=== PATIENT | female | born 1955 | race Caucasian/White ===

== ENCOUNTER → 2016-10-01 | Outpatient (CLI) | payer BC ==
--- NOTE | 2016-10-01 17:27 | CT ---
EXAMINATION TYPE: CT angio chest DATE OF EXAM: 10/01/2016 5:08 PM COMPARISON: NONE HISTORY: Pt states of SOB x9 months. CT DLP: 583 mGycm Automated exposure control for dose reduction was used. CONTRAST: CTA scan of the thorax is performed with IV Contrast, patient injected with 80 mL of Omnipaque 350, p ulmonary embolism protocol. MIP images are created and reviewed. 3D reconstructed images are create d on an independent workstation and reviewed. FINDINGS: The lungs are clear of consolidation. There is mild atelectasis at the lung bases. There is a large h iatal hernia. I see no filling defects in the pulmonary arteries. There is no evidence of a pulmonary mass. There are no hilar masses. There is no evidence of aortic aneurysm or dissection. Heart size i s fairly normal. There is no mediastinal adenopathy. IMPRESSION: NO EVIDENCE OF PULMONARY EMBOLISM. LARGE HIATAL HERNIA. MILD ATELECTASIS AT THE LUNG BASES. THERE IS MINIMAL FIBROTIC CHANGE AT THE LUNG BASES WELL.
== END | disposition home or self-care (01) ==
LOC: RADCTMAIN 16:23
PROVIDERS: ATTEND Internal Medicine Critical Care Medicine
DX: J84.10 Pulmonary fibrosis, unspecified (principal)
CPT/HCPCS: 71275; Q9967

== ENCOUNTER 2016-11-06 09:25 | Day surgery (SDC) | payer BC ==
[2016-11-05 09:07] VITALS: BMI 38.2
[~2016-11-06 09:25] MED LIST: LACTATED RINGERS 1,000 ML IV SCH
[2016-11-06 09:46] VITALS: RESP 18; TEMP 97.8
[2016-11-06] MEDS ORDERED: LIDOCAINE 1% 20 ML VIAL (10MG/ML) FOR IV START INTRADERMA ONE (10:01)
[2016-11-06 10:20] LABS: Anisocytosis Moderate; Basophils % (A) 0 %; CH 25.5; CHCM 29.1; Eosinophils # (A) 0.1 k/uL (0-0.7); Eosinophils % (A) 3 %; HCT 31.9 % (34.0-46.0); HDW 3.04; HGB 9.5 gm/dL (11.4-16.0); Hypochromasia Marked; Luc # (Auto) 0.11; Luc % (Auto) 4; Lymphocytes # (A) 0.8 k/uL (1.0-4.8); Lymphocytes % (A) 28 %; MCH 25.9 pg (25.0-35.0); MCHC 29.7 g/dL (31.0-37.0); MCV 87.5 fL (80.0-100.0); Mean Platelet Volume 6.7; Microcytosis Slight; Monocytes # (A) 0.2 k/uL (0-1.0); Monocytes % (A) 7 %; Neutrophils # (A) 1.6 k/uL (1.3-7.7); Neutrophils % (A) 58 %; RBC 3.65 m/uL (3.80-5.40); RDW 22.6 % (11.5-15.5); WBC 2.7 k/uL (3.8-10.6); WBC (Perox) 2.79
[2016-11-06] MEDS ORDERED: LIDOCAINE 1% INJ 10MG/ML (20 ML MDV) ONE (10:41)
[2016-11-06] MEDS ORDERED: PROPOFOL 10 MG/ML 20 ML VIAL IV ONE (10:41)
--- NOTE | 2016-11-06 11:27 | P.PCN ---
Date of Procedure: 11/06/16 Procedure(s) Performed: Procedure: 1. Esophagogastroduodenoscopy and biopsy. 2. Colonoscopy and biopsy. Preoperative diagnosis: Iron deficiency anemia. Postoperative diagnosis: 1. Large hiatal hernia. 2. Gastritis. 3. Sigmoid diverticulosis with nonspecific mucosal changes in the sigmoid. 4. Biopsies obtained from the duodenum, antrum, esophagus and sigmoid. Preparation: HalfLytely prep. Sedation: Was provided by anesthesia. Brief clinical history: The patient is a 61-year-old female who is referred for this evaluation because of history of iron deficiency anemia. The patient had prior evaluations over the last few years for hiatal hernia and bowel issues. Procedure: With the patient on her left lateral decubitus position and after informed consent and adequate sedation, I passed the Olympus-GIF 160 video upper endoscope through the cricopharyngeus down the esophagus. GE junction was at 35 cm from the incisors and there was a large hiatal hernia with both paraesophageal and sliding components. The esophagus did not show any strictures or Smart's esophagus or any acute inflammation. The endoscope was then passed into the stomach which was insufflated with air and inspected in detail including the retroflex view in the cardia. There was mottling and erythema diffusely and there were multiple erosions, corresponding to the diaphragmatic impression, but there was no spontaneous bleeding or ulcers. Pyloric channel, duodenal bulb, post bulbar area and descending duodenum appeared essentially within normal limits with minimal erythema. I obtained multiple biopsies from the duodenum, antrum and esophagus then the endoscope was withdrawn and I proceeded with the colonoscopy. Perianal area did not show any fissures or fistulas. There were no masses felt on digital rectal examination. The Olympus CFQ 160L video colonoscope was then inserted in the rectum in the usual fashion and advanced to the cecum. There were multiple diverticular orifices seen scattered in the sigmoid and there was some nonspecific mucosal changes in the mid and distal sigmoid in the vicinity of diverticular orifices with patches of erythema and some mucosal hemorrhage and some friability interspersed among otherwise normal-looking mucosa. No polyps or tumors were seen or any spontaneous bleeding or other pathology. I obtained biopsies from the sigmoid then the endoscope was withdrawn. The patient tolerated the procedure well. Plan: The patient was reassured. Will await biopsy results. It is likely her anemia is on the basis of the findings on this exam today, however, consideration can be given for a capsule endoscopy to rule out with confidence small bowel pathology based on her course. Would keep you updated on her progress.
[2016-11-06 11:44] VITALS: BP 135/84; PULSE 76
== END 2016-11-06 12:23 | disposition home or self-care (01) ==
LOC: ORWHC2ENDO 09:25
DX: K29.50 Unspecified chronic gastritis without bleeding (principal); K57.30 Diverticulosis of large intestine without perforation or abscess without bleeding; K44.9 Diaphragmatic hernia without obstruction or gangrene; D50.9 Iron deficiency anemia, unspecified; K20.9 Esophagitis, unspecified; K52.9 Noninfective gastroenteritis and colitis, unspecified; Z79.899 Other long term (current) drug therapy; Z88.1 Allergy status to other antibiotic agents; Z91.041 Radiographic dye allergy status; Z88.2 Allergy status to sulfonamides; Z86.718 Personal history of other venous thrombosis and embolism; Z87.891 Personal history of nicotine dependence
CPT/HCPCS: 88305; 85025; 88342; 45380; 43239; J2001; J2704; 99153

== ENCOUNTER → 2016-11-28 | Outpatient (CLI) | payer BC ==
[2016-11-28 08:45] LABS: Anisocytosis Slight; CH 27.1; CHCM 29.5; HCT 36.5 % (34.0-46.0); HDW 2.83; HGB 11.1 gm/dL (11.4-16.0); Hypochromasia Marked; MCHC 30.5 g/dL (31.0-37.0); MCV 91.8 fL (80.0-100.0); Mean Platelet Volume 7.4; RBC 3.98 m/uL (3.80-5.40); RDW 19.5 % (11.5-15.5); WBC 3.7 k/uL (3.8-10.6)
[2016-11-28 09:09] LABS: Anion Gap 10 mmol/L; Blood Urea Nitrogen 11 mg/dL (7-17); Calcium 9.6 mg/dL (8.4-10.2); Carbon Dioxide 26 mmol/L (22-30); Chloride 107 mmol/L (98-107); Glucose 99 mg/dL (74-99); Non-African American GFR(MDRD) >60 (>60 ml/min/1.73 sqM); Potassium 4.8 mmol/L (3.5-5.1); Sodium 143 mmol/L (137-145)
== END | disposition home or self-care (01) ==
LOC: LABWHC1 08:06
PROVIDERS: ATTEND Internal Medicine Interventional Cardiology
DX: D50.9 Iron deficiency anemia, unspecified (principal)
CPT/HCPCS: 36415; 80048; 85027